=== PATIENT | male | born 1960 | race African-American/Black ===

== ENCOUNTER → 2020-08-11 08:30 | Outpatient (BNVA) | payer OTHER, SELFPAY | PROVIDERS: Visit Provider Orthopaedic Surgery | DX: M75.41 Impingement syndrome of right shoulder (principal) | CPT/HCPCS: 20610; 99212; J1040 ==

== ENCOUNTER 2021-01-26 08:02 | Outpatient (REF) | payer OTHER, SELFPAY ==
--- NOTE | ~2021-01-26 | XR_ITS ---
EXAMINATION: XR UPRIGHT AP VIEW OF BOTH KNEES XR LATERAL AND PATELLA VIEW OF LEFT KNEE CLINICAL INFORMATION: Pain in left knee, pain in right knee. COMPARISON: X-rays of the right and left knee September 2014. TECHNIQUE: AP upright of both knees. Patella and lateral view of left knee. FINDINGS: Left knee: Left total knee arthroplasty is noted with components in usual and unchanged position. The components appear cemented no periprosthetic fracture or suspicious area of lucency. No effusion. Arterial calcification present. Right knee limited AP upright: Right total knee arthroplasty with components in usual position and appearance. No periprosthetic fracture or suspicious area of lucency. XR/XR knee standing BI IMPRESSION: RIGHT KNEE LIMITED: Right total knee arthroplasty without complication by x-ray. LEFT KNEE: Left total knee arthroplasty without change or evidence of complication by x-ray.
--- NOTE | ~2021-01-26 | XR_ITS ---
EXAMINATION: XR UPRIGHT AP VIEW OF BOTH KNEES XR LATERAL AND PATELLA VIEW OF LEFT KNEE CLINICAL INFORMATION: Pain in left knee, pain in right knee. COMPARISON: X-rays of the right and left knee September 2014. TECHNIQUE: AP upright of both knees. Patella and lateral view of left knee. FINDINGS: Left knee: Left total knee arthroplasty is noted with components in usual and unchanged position. The components appear cemented no periprosthetic fracture or suspicious area of lucency. No effusion. Arterial calcification present. Right knee limited AP upright: Right total knee arthroplasty with components in usual position and appearance. No periprosthetic fracture or suspicious area of lucency. XR/XR knee LT 2V IMPRESSION: RIGHT KNEE LIMITED: Right total knee arthroplasty without complication by x-ray. LEFT KNEE: Left total knee arthroplasty without change or evidence of complication by x-ray.
== END 2021-01-26 08:03 | disposition home or self-care (01) ==
LOC: HO.HOSX 08:02
PROVIDERS: Visit Provider Orthopaedic Surgery
DX: T84.84XA Pain due to internal orthopedic prosthetic devices, implants and grafts, initial encounter (principal); Z96.652 Presence of left artificial knee joint
CPT/HCPCS: 73560; 73565; 99212

== ENCOUNTER 2021-06-14 10:54 | Outpatient (REF) | payer OTHER, SELFPAY ==
[2021-06-14 12:06] LABS: Anion Gap 12 (12-20); Blood Urea Nitrogen 12 mg/dL (9-16); Calcium 9.2 mg/dL (8.4-10.2); Carbon Dioxide 25 mmol/L (22-29); Chloride 109 mmol/L (96-108); Estimated Glomerular Filt Rate > 60; Potassium 4.6 mmol/L (3.3-5.1); Sodium 141 mmol/L (135-145)
[2021-06-14 12:19] LABS: Creatinine Urine 223.35 mg/dL; Microalbum/Creatinine Ratio Ur 11.1 ug/mg cr; Total Protein Urine Random 12 mg/dL (<12)
== END 2021-06-14 10:55 | disposition home or self-care (01) ==
LOC: HO.LAB 10:54
PROVIDERS: PCP Physician Assistant; Visit Provider Internal Medicine Nephrology
DX: R80.9 Proteinuria, unspecified (principal); I10 Essential (primary) hypertension
CPT/HCPCS: 36415; 80051; 82043; 82310; 82565; 84156; 84520

== ENCOUNTER → 2021-07-22 11:01 | Outpatient (BNVA) | payer OTHER, SELFPAY | PROVIDERS: Visit Provider Orthopaedic Surgery | DX: M67.911 Unspecified disorder of synovium and tendon, right shoulder (principal); E11.9 Type 2 diabetes mellitus without complications | CPT/HCPCS: 20610; 99212; J1100 ==

== ENCOUNTER 2021-08-09 10:58 | Outpatient (REF) | payer OTHER, SELFPAY | END 2021-08-09 10:59 | disposition home or self-care (01) | LOC: HO.MRI 10:58 | PROVIDERS: Visit Provider Orthopaedic Surgery | DX: Z13.89 Encounter for screening for other disorder (principal) ==

== ENCOUNTER 2021-08-16 11:00 | Outpatient (RCR) | payer OTHER, SELFPAY ==
[2021-08-02 11:16] VITALS: BP 148/93; PULSE 72; O2SAT 98
--- NOTE | 2021-08-02 13:23 | MHC.PT.EP ---
[facility] [place] Office [place] [facility] [place] [facility] [address] [phone] F: [phone] F: [phone] F: [phone] F: [phone] Physical Therapy Plan of Care Date of Evaluation: Date of Surgery: Diagnosis: RIGHT SHOULDER IMPINGEMENT Assessment: 60 YO MALE REF TO PT WITH PROGR Rt SH PAIN- H/O INJECTION 02/10 W/O RELIEF- HE IS RIGHT HAND DOMINANT - Pt HAS LIMITED CERV AROM AND SIGNIF DECR Rt SH AROM DUE TO PAIN; DECR STRENGTH Rt SH, LIMITED ABILITY TO PERFORM SPECIAL TESTS DUE TO LEVEL OF Rt SH GUARDING, AND (+) TENDERNESS W PALP Rt UT/ MID TRAP/POSTERIOR DELT. FUNCTIONAL LIMITATIONS INCLUDE DECR ABILITY TO SLEEP, LIMITED LIFTING/ CARRYING WITH Rt UE, AND HE HAS DIFFIC FINDING A POSITION OF COMFORT FOR Rt UE. Pt IS A GOOD CANDIDATE FOR SKILLED PT TO ADDRESS PAIN MGMT, Rt SH/ CERV ROM, DEV HEP AND SELF-SX MGMT STRATEGIES, AND EASE TISSUE TENSION. Frequency and Duration: The patient will be seen 2 x WK x 5 WKS Short Term Goals: Pt'S RT SH PAIN AND SOFT TISSUE TENSION DECR TO 3-4/10 IN 2 WK Pt DEMON INDEP SELF-CORRECT POSTURE TO IMPROVE GH POSITIONING IN 1 WK Pt DEMON IMPROVED Rt SH AND CERV AROM, TO DECR MM GUARDING IN 2 WKS [facility] Goals: Pt INDEP W HEP PROGR AND SELF-SX MGMT STRATEGIES IN 5 WKS Pt RESUME REG ADLs EVIDENT W IMPROVED SPADI SCORE BY AT LEAST 10 POINTS (AT EVAL 124/130) IN 5 WKS Treatment Plan: Modalities to reduce pain, spasms and effusion. Manual therapy to restore motion and function. Therapeutic exercise to improve strength and flexibility. Neuromuscular re-education for posture and balance. Therapeutic activities to return to functional activities of daily living. Electronically signed by: Denice Castrejon,PT Please sign and return to therapist. Thank you for your referral.
--- NOTE | 2021-09-20 10:01 | MHC.PT.DC ---
[facility] [place] Office [place] Office [place] [facility] [address] [place]vng [place] 140 [facility] [phone] F: [phone] F: [phone] F: [phone] F: [phone] Physical Therapy Discharge Report Diagnosis: RIGHT SHOULDER IMPINGEMENT Date of Surgery: Date of Evaluation: 08/02/21 Date of Discharge: 09/20/21 Treatments to Date: 4 Cancellations to Date: 0 No Shows to Date: 3 Discharge Status: Improved Function Independent with HEP Patient Elected to Stop Discharge Summary: Pt HAD DECR ATTENDANCE DUE TO OTHER PERSONAL SITUATIONS WARRANTING HIS ATTENTION- HE HAS A HEP AND DEMON IMPROVED SELF-POSTURAL CORRECTION. Pt'S Rt SH AROM GRAD INCR, REDUCED SOFT TISSUE IRRITABILITY. Electronically signed by: Denice Castrejon,PT Please sign and return to therapist. Thank you for your referral.
== END 2021-09-20 10:01 | disposition home or self-care (01) ==
LOC: HO.PT 11:00
PROVIDERS: PCP Physician Assistant; Visit Provider Orthopaedic Surgery
DX: M75.42 Impingement syndrome of left shoulder (principal)
CPT/HCPCS: 97110; 97140; 97162